=== PATIENT | male | born 1990 | race Caucasian/White ===

== ENCOUNTER 2022-01-22 19:33 | Emergency (ER) | payer OTHER | END 2022-01-22 20:41 | disposition left against medical advice (07) | LOC: FER 19:33 | DX: T54.3X1A Toxic effect of corrosive alkalis and alkali-like substances, accidental (unintentional), initial encounter (principal); Z53.29 Procedure and treatment not carried out because of patient's decision for other reasons; Z28.310 Unvaccinated for COVID-19 | CPT/HCPCS: 99281 ==